=== PATIENT | male | born 1935 | race Caucasian/White ===

== ENCOUNTER 2016-06-12 18:44 | Emergency (ER) | payer OTHER ==
[~2016-06-12] VITALS: Ht 167.6 cm; Wt 65.8 kg
[2016-06-12] MEDS ORDERED: ONDANSETRON HCL 4 MG/2 ML VIAL IV ONE (21:15)
[2016-06-12] MEDS ORDERED: HYDROmorphone HCL 2 MG/ML VL IV ONE (21:15)
[2016-06-12 23:09] VITALS: BP 156/65
== END 2016-06-12 23:09 | disposition home or self-care (01) ==
LOC: ER 18:51
DX: S52.502A Unspecified fracture of the lower end of left radius, initial encounter for closed fracture (principal); I10 Essential (primary) hypertension; M19.90 Unspecified osteoarthritis, unspecified site; W01.0XXA Fall on same level from slipping, tripping and stumbling without subsequent striking against object, initial encounter; Y93.89 Activity, other specified; Y92.89 Other specified places as the place of occurrence of the external cause; Y99.8 Other external cause status; Z86.73 Personal history of transient ischemic attack (TIA), and cerebral infarction without residual deficits; Z98.61 Coronary angioplasty status
CPT/HCPCS: 29125; 73110; 93005; 96374; 96375; 99284; J1170; J2405